=== PATIENT | male | born 1960 | race Asian ===

== ENCOUNTER → 2018-06-28 11:02 | Outpatient (CLI) | payer OTHER, SELFPAY ==
--- NOTE | 2018-06-28 | DI.MRI.S_ITS ---
PROCEDURE: MR CERVICAL SPINE WO CON INDICATIONS: CERVICAL REGION RADICULOPATHY TECHNIQUE: Noncontrast sagittal T1 spin echo and T2 fast spin echo, sagittal STIR, foraminal oblique sagittal T2 fast spin echo, and axial gradient echo or T2 fast spin echo through the cervical spine. COMPARISON: [facility], , C-SPINE WITHOUT CONTRAST, 11/09/2016, 10:04. [facility] Outside Film, RG, SPINE CERVICAL MIN 4VW, 09/09/2016, 9:58. FINDINGS: Image quality: Partially degraded by motion artifact. Alignment and Curvature: There is loss of normal cervical lordosis. There is mild, grade 1 retrolisthesis of C6 on C7, as before. Bone Marrow: Marrow demonstrates normal overall signal. There is mild reactive signal within the endplates adjacent to the C6-C7 intervertebral disc. Spinal Cord: Visualized spinal cord has normal size and signal. No cerebellar tonsillar herniation. Paraspinous Soft Tissues: No paravertebral masses. Prevertebral soft tissues are normal in thickness. C2-C3: Congenital canal stenosis. Mild left greater than right facet and uncovertebral hypertrophy. Mild canal stenosis. Increased, moderate left foraminal stenosis, no change in mild right foraminal stenosis. C3-C4: Congenital canal stenosis. Mild disc desiccation and diffuse disc bulge. Left greater than right facet and uncovertebral hypertrophy. Moderate canal stenosis. Moderate left and mild right foraminal stenosis. No change. C4-C5: Congenital canal stenosis. Mild diffuse disc bulge. Left greater than right facet and uncovertebral hypertrophy. Moderate canal stenosis. Moderate left and mild right foraminal stenosis. No change. C5-C6: Congenital canal stenosis. Mild disc height loss and desiccation. Mild diffuse disc bulge with superimposed broad-based left paracentral protrusion. Mild facet and uncovertebral hypertrophy. Severe canal stenosis. Mild cord flattening. Mild left greater than right foraminal stenosis. No change. C6-C7: Congenital canal stenosis. Moderate disc height loss and desiccation. Moderate diffuse disc bulge. Left greater than right facet and uncovertebral hypertrophy. Severe canal stenosis. Moderate cord flattening. Severe left and mild right foraminal stenosis. No change. C7-T1: Congenital canal stenosis. There is overall mild canal stenosis. No foraminal stenosis. No change. IMPRESSION: 1. Diffuse congenital canal stenosis, with superimposed disc and facet disease, as well as uncovertebral hypertrophy. 2. Multilevel canal stenoses, worst at C5-C6 and C6-C7, where there is cord flattening present as described above. 3. Multilevel foraminal stenoses, worst at C6-C7 on the left, where there is severe foraminal stenosis. There is increased, moderate left C2-C3 foraminal stenosis. Dictated by: Vinita Marcial M.D. on 06/28/2018 at 13:36 Approved by: Vinita Marcial M.D. on 06/28/2018 at 13:42
== END ==
PROVIDERS: Visit Provider Orthopaedic Surgery
DX: M50.11 Cervical disc disorder with radiculopathy, high cervical region (principal); M48.02 Spinal stenosis, cervical region
CPT/HCPCS: 72141

== ENCOUNTER → 2022-08-31 12:45 | Outpatient (CLI) | payer OTHER, SELFPAY ==
--- NOTE | 2022-08-31 | DI.ECHO.S_ITS ---
[facility] +---------+ : : [address] [place] : : : : [id number] : : : : Phone: [phone]+ Echocardiogram Report + + :Name: GINA SCHAFFER Study Date: 08/31/2022 Height: 69 in : :[facility] ReadingLocation: Weight: 225 lb : : Gender: Male BSA: 2.2 m2 : :: 1960 Age: 62 yrs BP: 134/82 mmHg: :Reason For Study: CHEST PAIN : :Ordering Physician: NESTOR, : :JASMINE Performed By: Angelica Berry : :Referring: JASMINE SIMS : + + Interpretation Summary 1) Normal left ventricular thickness and size with low norml systolic function (EF 50-55%). 2) Upper normal right ventricular size wiht normal function. 3) There is mild to moderate aortic regurgitation. 4) The ascending aorta is mild-moderately enlarged at 4.3cm. 5) No prior Echo available for comparison. Procedure: A two-dimensional transthoracic echocardiogram with color flow and Doppler was performed. The study quality was technically adequate. There is no prior echocardiogram noted for this patient. The patient was in sinus bradycardia with heart rates between 44-50 bpm during the exam. Left Ventricle: The left ventricle is normal in size and wall thickness. The ejection fraction is estimated to be 50-55%. There are no focal wall motion abnormalities. Diastolic parameters suggest a relaxation abnormality of the left ventricle, consistent with probable normal filling pressures. Right Ventricle: The right ventricle is at the upper limits of normal in size. The right ventricular systolic function is normal. Atria: The left atrium is mildly dilated. Right atrial size is normal. There is no Doppler evidence for an interatrial shunt. Mitral Valve: The mitral valve is normal in structure and function. There is mild mitral regurgitation. Aortic Valve: The aortic valve is trileaflet. The aortic valve opens well. There is no aortic valve stenosis. There is mild to moderate aortic regurgitation. Tricuspid Valve: The tricuspid valve is normal in structure and function. There is a trace or physiologic amount of tricuspid regurgitation. Pulmonary artery pressures cannot be estimated because of the lack of a measurable TR jet velocity. Pulmonic Valve: The pulmonic valve is not well seen, but is grossly normal. There is mild pulmonic regurgitation. Great Vessels: The aortic root is borderline dilated. The ascending aorta is mild-moderately enlarged. The IVC is of normal diameter and collapses greater than 50% with a sniff. This suggests a low right atrial pressure of 3 mm Hg. Pericardium/ Pleura There is no pericardial effusion. There is no pleural effusion. MMode/2D Measurements & Calculations LVIDd: 5.9 cm LVOT diam: 2.9 cm LVIDs: 4.1 cm Ao root diam: 4.0 cm FS: 29.2 % asc Aorta Diam: 4.3 cm EPSS: 0.52 cm Ao Arch Diam (Prox Trans): 3.5 cm IVSd: 0.88 cm LVPWd: 0.89 cm LV murphy. diameter/BSA (cm/m^2): 2.7 LV sys. diameter/BSA (cm/m^2): 1.9 LA A2 area: 25.2 cm2 RA long axis: 5.3 cm LA A4 area: 19.2 cm2 RA area: 12.3 cm2 LA length (vol): 5.1 cm RA vol: 24.5 ml LA vol: 80.0 ml RA : 11.3 ml/m2 LA vol index: 36.8 ml/m2 IVC diam: 1.2 cm RVD1 (basal): 4.1 cm RVD2 (mid): 3.3 cm TAPSE: 2.2 cm Doppler Measurements & Calculations Ao V2 max: 113.2 cm/sec LVOT Max Nate: 95.7 cm/sec Ao V2 mean: 88.1 cm/sec LV V1 max P.7 mmHg Ao max P.1 mmHg LV V1 VTI: 21.0 cm Ao mean P.3 mmHg CHACE(I,D): 4.8 cm2 Ao V2 VTI: 27.8 cm CHACE(V,D): 5.4 cm2 sev ratio: 0.76 CHACE indexed to BSA (cm^2/m^2): 2.2 AI P1/2t: 1035 msec AI dec slope: 131.5 cm/sec2 MV E max nate: 63.3 cm/sec PA V2 max: 76.4 cm/sec MV A max nate: 65.7 cm/sec PA V2 mean: 53.1 cm/sec MV E/A: 0.96 PA mean P.3 mmHg Med Peak E' Nate: 5.8 cm/sec PA pr(Accel): 32.8 mmHg E/E' med: 10.9 Lat Peak E' Nate: 8.2 cm/sec E/E' lat: 7.7 E/e' average: 9.3 MV dec time: 0.23 sec SV(OT): 134.4 ml Reading Physician:04:46 PM
[2022-08-31 13:42] LABS: COVID19 -Nasal RAPID Negative (Negative)
--- NOTE | 2022-08-31 18:59 | DI.NM.S_ITS ---
DATE OF SERVICE: 08/31/2022 PROCEDURE PERFORMED: Exercise treadmill stress test without imaging. ORDERING PROVIDER: Dr. Jose A Sims. INDICATIONS: The patient is a 61-year-old male with hypertension, diabetes, and atypical chest pain. FINDINGS: 1. The patient was able to exercise for 8 minutes, 1 second on a standard Hammad protocol, suggesting mildly impaired exercise capacity with an SARAH of +7%, achieving 10.1 METs. 2. He had a normal heart rate response to exercise, achieving a maximum heart rate of 166 BPM (104% of his predicted maximum). He had a mild hypertensive blood pressure response to exercise with a resting blood pressure of 120/80, increasing to a maximum of 200/100. 3. He had no chest discomfort or other anginal symptom. 4. His resting ECG shows sinus rhythm with an occasional PAC and normal ST segments. With exercise, there are no significant ST-segment shifts. He develops occasional PVCs, briefly in a bigeminal pattern early in exercise but subsequently improving, but then returning in recovery with one ventricular couplet but no other complex ventricular ectopy. IMPRESSION: 1. Normal exercise treadmill study for ischemia. 2. Mildly impaired exercise capacity without angina. He had a mild hypertensive blood pressure response to exercise. 3. Occasional PVCs with exercise, resolving at high work loads, and briefly in a bigeminal pattern. Delia Gonzalez - Nohemy/brittany doc#: [id number]/job#: [id number] dd: 08/31/2022 16:59:00 dt: 08/31/2022 17:57:00 DICTATING /COPIES TO: Michael Bro MD COPIES MNE: TREY;
== END ==
PROVIDERS: PCP Nurse Practitioner Family; Referring Provider Internal Medicine Cardiovascular Disease; Visit Provider Internal Medicine Cardiovascular Disease
DX: I08.0 Rheumatic disorders of both mitral and aortic valves (principal); E07.89 Other specified disorders of thyroid; I44.0 Atrioventricular block, first degree; E11.9 Type 2 diabetes mellitus without complications; I10 Essential (primary) hypertension; I77.89 Other specified disorders of arteries and arterioles; Z20.822 Contact with and (suspected) exposure to COVID-19
CPT/HCPCS: 87635; 93017; 93306